=== PATIENT | male | born 1950 | race Caucasian/White ===

== ENCOUNTER 2017-10-18 06:26 | Day surgery (SDC) | payer MEDICARE, OTHER ==
[2017-10-18] MEDS ORDERED: PROPOFOL 40 ML (07:32)
[2017-10-18] MEDS ORDERED: LIDOCAINE 100 MG SYRINGE (07:32)
[2017-10-18] MEDS ORDERED: EPHEDrine SULFATE 50 MG/5 ML SYG (08:14)
== END 2017-10-18 11:31 | disposition home or self-care (01) ==
LOC: GIL 06:26
DX: K92.1 Melena (principal); D12.3 Benign neoplasm of transverse colon; K29.60 Other gastritis without bleeding; K44.9 Diaphragmatic hernia without obstruction or gangrene; B96.81 Helicobacter pylori [H. pylori] as the cause of diseases classified elsewhere; K21.9 Gastro-esophageal reflux disease without esophagitis; K64.8 Other hemorrhoids
CPT/HCPCS: 43239; 87081; 88305